=== PATIENT | female | born 1985 | race Caucasian/White ===

== ENCOUNTER 2018-01-22 10:35 | Outpatient (CLI) | payer BC, OTHER ==
[2018-01-22 11:48] LABS: ADD UMIC YES; UR ASCORBIC ACID NEGATIVE (NEGATIVE); UR BACTERIA FEW /HPF (NONE SEEN); UR BILIRUBIN (Dip) NEGATIVE (NEGATIVE); UR BLOOD (Dip) NEGATIVE (NEGATIVE); UR CLARITY CLEAR (CLEAR); UR COLOR YELLOW (YELLOW); UR GLUCOSE (Dip) NEGATIVE (NEGATIVE); UR KETONES (Dip) NEGATIVE (NEGATIVE); UR LEUKOCYTE ESTERASE (Dip) 2+ Leu/ul (NEGATIVE); UR NITRITE (Dip) NEGATIVE (NEGATIVE); UR RBC 3 /HPF (0-5); UR SPECIFIC GRAVITY (Dip) 1.019 (1.003-1.030); UR SQUAMOUS EPITHELIAL CELL FEW /HPF (FEW); UR TOTAL PROTEIN (Dip) NEGATIVE (NEGATIVE); UR UROBILINOGEN (Dip) 1+ mg/dL (NEGATIVE); UR WBC 1 /HPF (0-5)
== END 2018-01-22 13:10 | disposition home or self-care (01) ==
LOC: OBT 10:35 → L-D 10:36 → OBT 13:10
DX: O62.9 Abnormality of forces of labor, unspecified (principal); Z3A.29 29 weeks gestation of pregnancy
CPT/HCPCS: 76817; 76818; 81001; 82731

== ENCOUNTER 2018-03-11 14:26 | Outpatient (CLI) | payer BC | END 2018-03-11 17:45 | disposition home or self-care (01) | LOC: OBT 14:26 → L-D 14:27 → OBT 17:45 | DX: O62.9 Abnormality of forces of labor, unspecified (principal); Z3A.36 36 weeks gestation of pregnancy | CPT/HCPCS: Z7500 ==

== ENCOUNTER 2018-03-22 20:18 | Inpatient (IN) | payer BC ==
[2018-03-22] MEDS ORDERED: CARBOPROST 250 MCG INJ IM (22:00)
[2018-03-22] MEDS ORDERED: LIDOCAINE 1% (MPF) 30 ML INJ INJ (22:00)
[2018-03-22] MEDS ORDERED: METHYLERGONOVINE 0.2 MG INJ IM (22:00)
[2018-03-22] MEDS ORDERED: MISOPROSTOL 200 MCG TAB PR (22:00)
[2018-03-22] MEDS ORDERED: OXYTOCIN 30 UNITS/LR 500 ML IV (22:00)
[2018-03-22] MEDS: LACTATED RINGER'S 1,000 ML IV* (22:23)
[2018-03-22] MEDS: AMPICILLIN 2 GM/NS (PMX) 100 ML IV (22:24)
[2018-03-23 00:01] LABS: ADD MAN DIFF? NO
[2018-03-23 00:08] LABS: WHITE BLOOD COUNT 9.9 10^3/ul (4.8-10.8)
[2018-03-23 00:08] LABS: BASOPHILS % 0.3 % (0.0-2.0); EOSINOPHILS # 0.1 10^3/ul (0.0-0.5); EOSINOPHILS % 0.7 % (0.0-7.0); HEMATOCRIT 34.3 % (37.0-47.0); HEMOGLOBIN 11.3 g/dl (12.0-16.0); LYMPHOCYTES # 2.2 10^3/ul (0.8-2.9); MEAN CORPUSCULAR HEMOGLOBIN 29.4 pg (29.0-33.0); MEAN CORPUSCULAR HGB CONC 32.9 g/dl (32.0-37.0); MEAN CORPUSCULAR VOLUME 89.1 fl (82.0-101.0); MEAN PLATELET VOLUME 12.3 fl (7.4-10.4); MONOCYTE # 0.5 10^3/ul (0.3-0.9); MONOCYTES % 4.6 % (0.0-11.0); NEUTROPHIL # 7.1 10^3/ul (1.6-7.5); NEUTROPHILS % 72.2 % (39.0-77.0); PLATELET COUNT 156 10^3/UL (140-415); RED BLOOD COUNT 3.85 10^6/ul (4.20-5.40); RED CELL DISTRIBUTION WIDTH 13.8 % (11.5-14.5)
[2018-03-23 00:25] LABS: PROTIME 12.2 Sec (11.9-14.9)
[2018-03-23 00:26] LABS: PARTIAL THROMBOPLASTIN TIME 26.2 Sec (25.0-35.0)
[2018-03-23 01:05] LABS: HEPATITIS B SURFACE ANTIGEN NEGATIVE (NEGATIVE)
[2018-03-23] MEDS: AMPICILLIN 1 GM/NS (PMX) 50 ML IV ×4 (01:56→14:33)
[2018-03-23 02:09] LABS: HIV 1&2 ANTIBODY NEGATIVE (NEGATIVE)
[2018-03-23] MEDS ORDERED: FENTAnyl 2MCG/ML-ROPIV 0.2% 100 ML (02:39)
[2018-03-23] MEDS ORDERED: KETOROLAC 30 MG INJ IV (03:00)
[2018-03-23] MEDS ORDERED: DIPHENHYDRAMINE 50 MG INJ IV (03:00)
[2018-03-23] MEDS ORDERED: NALOXONE (0.4 MG/ML) INJ IV (03:00)
[2018-03-23] MEDS ORDERED: ONDANSETRON 4 MG INJ IV (03:00)
[2018-03-23] MEDS ORDERED: HYDROmorphONE 0.5 MG/0.5 ML SYG IV ×2 (03:00)
[2018-03-23] MEDS: LACTATED RINGER'S 1,000 ML IV* ×2 (03:11→12:59)
[2018-03-23] MEDS: FENTAnyl 2MCG/ML-ROPIV 0.2% 100 ML BAG EPI (10:03)
[2018-03-23] MEDS: OXYTOCIN 30 UNITS/LR 500 ML IV ×4 (17:14→22:19)
[2018-03-23] MEDS ORDERED: SENNA/DOCUSATE NA (8.6MG/50MG) TAB PO (18:00)
[2018-03-23] MEDS ORDERED: CARBOPROST 250 MCG INJ IM (18:00)
[2018-03-23] MEDS ORDERED: ZOLPIDEM 5 MG TAB PO (18:00)
[2018-03-23] MEDS ORDERED: MISOPROSTOL 200 MCG TAB PR (18:00)
[2018-03-23] MEDS ORDERED: METHYLERGONOVINE 0.2 MG INJ IM (18:00)
[2018-03-23] MEDS ORDERED: NACL 0.9% 3 ML SYG IV (18:00)
[2018-03-23] MEDS ORDERED: OXYTOCIN 30 UNITS/LR 500 ML IV (18:00)
[2018-03-23] MEDS: IBUPROFEN 600 MG TAB PO ×2 (18:00→23:50)
[2018-03-23] MEDS: SENNA/DOCUSATE NA (8.6MG/50MG) TAB PO (21:47)
[2018-03-23] MEDS: HYDROCODONE/APAP (5/325) TAB PO (21:47)
[2018-03-23] MEDS: WITCH HAZEL/GLYCERIN PAD PR (21:47)
[2018-03-23 21:56] LABS: RAPID PLASMA REAGIN NONREACTIVE (NR)
[2018-03-24] MEDS: IBUPROFEN 600 MG TAB PO ×4 (05:40→23:32)
[2018-03-24] MEDS: SENNA/DOCUSATE NA (8.6MG/50MG) TAB PO ×2 (08:40→21:00)
[2018-03-24 08:52] LABS: ADD MAN DIFF? NO
[2018-03-24 09:07] LABS: BASOPHILS % 0.3 % (0.0-2.0); EOSINOPHILS # 0.1 10^3/ul (0.0-0.5); EOSINOPHILS % 0.6 % (0.0-7.0); HEMATOCRIT 34.3 % (37.0-47.0); HEMOGLOBIN 11.3 g/dl (12.0-16.0); LYMPHOCYTES # 1.9 10^3/ul (0.8-2.9); LYMPHOCYTES % 18.5 % (15.0-51.0); MEAN CORPUSCULAR HEMOGLOBIN 29.1 pg (29.0-33.0); MEAN CORPUSCULAR HGB CONC 32.9 g/dl (32.0-37.0); MEAN CORPUSCULAR VOLUME 88.4 fl (82.0-101.0); MEAN PLATELET VOLUME 12.1 fl (7.4-10.4); MONOCYTE # 0.5 10^3/ul (0.3-0.9); MONOCYTES % 5.3 % (0.0-11.0); NEUTROPHIL # 7.6 10^3/ul (1.6-7.5); NEUTROPHILS % 74.7 % (39.0-77.0); PLATELET COUNT 129 10^3/UL (140-415); RED BLOOD COUNT 3.88 10^6/ul (4.20-5.40); RED CELL DISTRIBUTION WIDTH 13.4 % (11.5-14.5)
[2018-03-24 09:07] LABS: WHITE BLOOD COUNT 10.1 10^3/ul (4.8-10.8)
[2018-03-24] MEDS: HYDROCODONE/APAP (5/325) TAB PO (16:48)
[2018-03-24] MEDS: WITCH HAZEL/GLYCERIN PAD PR (23:36)
[2018-03-24] MEDS: LANOLIN 7 GM TUBE TOP (23:37)
[2018-03-25] MEDS: IBUPROFEN 600 MG TAB PO ×3 (05:43→18:41)
[2018-03-25] MEDS: SENNA/DOCUSATE NA (8.6MG/50MG) TAB PO (09:00)
[2018-03-25] MEDS: HYDROCODONE/APAP (5/325) TAB PO (10:13)
== END 2018-03-25 19:25 | disposition home or self-care (01) | DRG 775 ==
LOC: OBT 20:18 → L-D 20:19 → PP1 03-23 20:41 → OBT 21:30 → L-D 21:30
PROVIDERS: Obstetrics & Gynecology
PROC: 10E0XZZ Delivery of Products of Conception, External Approach (ICD-10-PCS; principal; 2018-03-23)
DX: O80 Encounter for full-term uncomplicated delivery (principal); Z3A.38 38 weeks gestation of pregnancy; Z37.0 Single live birth
CPT/HCPCS: 62319; 85025; 85610; 85730; 86592; 86703; 86850; 86900; 86901; 87340

== ENCOUNTER 2019-05-24 07:50 | Day surgery (SDC) | payer BC ==
[2019-05-24] MEDS: ACETAMINOPHEN 500 MG TAB PO (08:14)
[2019-05-24] MEDS: SOD CHLORIDE 0.9% 1,000 ML IV (08:15)
[2019-05-24] MEDS ORDERED: POLYMYXIN/BACITRACIN 1L IRRIG (08:27)
[2019-05-24] MEDS ORDERED: BUPIVACAINE 0.25% (MPF) 30 ML INJ (08:27)
[2019-05-24] MEDS: CEFAZOLIN 2 GM/50 ML (PMX) 50 ML IVPB (08:30)
[2019-05-24] MEDS ORDERED: MIDAZOLAM 1 MG/ML 2 ML INJ (08:47)
[2019-05-24] MEDS ORDERED: ONDANSETRON 4 MG INJ (08:47)
[2019-05-24] MEDS ORDERED: CEFAZOLIN 1 GM INJ (08:47)
[2019-05-24] MEDS ORDERED: FENTAnyl 50 MCG/ML VIAL (08:47)
[2019-05-24] MEDS ORDERED: LIDOCAINE 2% (SDV) 5 ML INJ (08:47)
[2019-05-24] MEDS ORDERED: PROPOFOL 40 ML (08:47)
[2019-05-24] MEDS ORDERED: ROCURONIUM 50 MG INJ (08:47)
[2019-05-24] MEDS ORDERED: DIPHENHYDRAMINE 50 MG INJ IV (09:00)
[2019-05-24] MEDS ORDERED: EPHEDrine 25 MG/5 ML SYG IV (09:00)
[2019-05-24] MEDS ORDERED: LABETALOL HCL 20MG INJ IV (09:00)
[2019-05-24] MEDS ORDERED: OXYCODONE/ACETAMINOPHEN (5/325) TAB PO (09:00)
[2019-05-24] MEDS ORDERED: ROPIVACAINE 0.5 % 30 ML VIAL (09:00)
[2019-05-24] MEDS ORDERED: ATROPINE 1 MG/10 ML SYRINGE IV (09:00)
[2019-05-24] MEDS ORDERED: morphine 2 MG INJ IV ×2 (09:00)
[2019-05-24] MEDS ORDERED: ALBUTEROL 0.083% (NEB) 2.5 MG/3 ML AMP HHN (09:00)
[2019-05-24] MEDS ORDERED: hydrALAzine 20 MG INJ IV (09:00)
[2019-05-24] MEDS ORDERED: ONDANSETRON 4 MG INJ IV (09:00)
[2019-05-24] MEDS ORDERED: FENTAnyl 50 MCG/ML VIAL IV ×2 (09:00)
[2019-05-24] MEDS ORDERED: HYDROmorphONE 1 MG/5 ML IV SYRINGE IV (09:00)
[2019-05-24] MEDS ORDERED: LEVALBUTEROL (NEB) 0.63 MG/3 ML AMP HHN (09:00)
[2019-05-24] MEDS ORDERED: FAMOTIDINE 20 MG INJ (09:11)
[2019-05-24] MEDS ORDERED: SUGAMMADEX SODIUM 200 MG/2 ML VIAL IV (09:30)
[2019-05-24] MEDS ORDERED: KETOROLAC 30 MG INJ (09:37)
[2019-05-24] MEDS: HYDROmorphONE 1 MG/5 ML IV SYRINGE IV ×2 (10:07→10:18)
[2019-05-24] MEDS: HYDROCODONE/APAP (5/325) TAB PO (10:34)
[2019-05-24] MEDS: KETOROLAC 15 MG INJ IV (10:47)
[2019-05-24] MEDS: OXYCODONE/ACETAMINOPHEN (5/325) TAB PO (11:34)
== END 2019-05-24 13:15 | disposition home or self-care (01) ==
LOC: SDS 07:50
DX: K43.2 Incisional hernia without obstruction or gangrene (principal); Z87.891 Personal history of nicotine dependence
CPT/HCPCS: 49655